=== PATIENT | male | born 1985 | race Two or more races ===

== ENCOUNTER 2024-09-27 12:18 | Emergency (ER) | payer MEDICAID, SELFPAY ==
--- NOTE | 2024-09-27 12:22 | ED_ITS ---
HPI - General Adult General Chief complaint: Neuro Symptoms/Deficit Stated complaint: l side facial nunbness Time Seen by Provider: 09/27/24 13:14 Source: patient and family (Significant other at bedside corroborating history) Mode of arrival: ambulatory Limitations: no limitations History of Present Illness ED Provider: Abby Owusu PA-C HPI narrative: 39-year-old male without significant medical history presents to the ED due to left-sided facial paralysis that began 1 day ago. Patient is steady he woke up yesterday 09/26 and took a shower and noticed that he was unable to keep water in his mouth as water was leaking out of the left side. As day progressed noticed he had progressing left-sided facial weakness. Stated he woke up this morning and was unable to close his left eye without digital manipulation. Denies chest pain, shortness of breath, headache, visual changes, nausea, vomiting, diarrhea, black/tarry stool Onset (ago): day(s) (1) Location: face (Left side) Radiation: non-radiation Related Data Previous Rx's ?Medication ?Instructions ?Recorded prednisone 20 mg tablet 60 mg (3 x 20 mg) PO DAILY # 6 tabs 09/27/24 valacyclovir 500 mg tablet 500 mg PO TID 7 days #21 ta bs 09/27/24 Allergies Allergy/AdvReac Type Severity Reaction Status Date / Time ibuprofen (From Motrin) Allergy Facial Verified 09/27/24 12:24 Swelling ketorolac (From Toradol) Allergy Facial Verified 09/27/24 12:24 Swelling Review of Systems 2 Review of Systems: CONST: Negative for fever, body aches and chills. HENT: Negative for neck pain/stiffness, headache, congestion, sore throat, swelling. L sided face paralysis, intermittent tingling EYES: Negative for discharge/pain or vision changes. L eye will not close without manipulation. RESP: Negative for cough/hemoptysis and shortness of breath. CV: Negative chest pain, difficulty breathing, palpitations. ABD: Negative pain, nausea, vomiting. : Negative increase frequency, dysuria, blood in urine or stool. MUSC: Negative for muscle aches, edema. SKIN: Negative rash, lesions/sores. NEURO: Negative headache, dizziness, weakness. Yes all other systems are reviewed and are negative PMFSH Past Medical History Attestation statement: The following information was validated with the patient. Source: old records reviewed, obtained from family (Significant other at bedside) and nursing notes reviewed Social History Social History Smoked in Last 30 Days: Yes Use of substances other than those prescribed or required for medical reasons: No Advance Directives: No Advance Directives Information Provided: Yes Do you have a plan to hurt others: No Plan Physical Exam ED Vital Signs: Vital Signs - 24 hr 09/27/24 12:23 Temperature 98.6 F Pulse Rate 79 Respiratory Rate 16 Blood Pressure 132/80 Pulse Oximetry 97 Oxygen Delivery Method Room Air BMI result Body Mass Index 25.8 GENERAL APPEARANCE: ?AxOx4, generally well-appearing, no acute distress. HEENT: ?NC, AT. MMM. EOMI, clear conjunctiva, oropharynx clear. L eye unable to close all the way without digital manipulation. L sided facial paralysis including eyebrow NECK: ?Supple without lymphadenopathy.? No stiffness or restricted ROM. HEART:? Normal rate and regular rhythm, normal S1/S1, no m/r/g LUNGS:? CTAB, moving air well. No crackles or wheezes are heard. ABDOMEN: ?Soft, nontender, nondistended with good bowel sounds heard. BACK: No CVAT, no obvious deformity. EXTREMITIES: ?Without cyanosis, clubbing or edema. NEUROLOGICAL: ?Grossly nonfocal. Alert and oriented, moving all 4 extremities. Observed to ambulate with normal gait. Skin: ?Warm and dry without any rash. NIH Stroke Scale Internal: Initial- Upon Arrival Time: 13:33 Level of Consciousness: Alert Level of Consciousness Questions: Answers both questions correctly Level of Consciousness Commands: Performs both tasks correctly Best Gaze: Normal Visual: No visual loss Facial Palsy: Partial paralysis Motor Arm (Right): No drift Motor Arm (Left): No drift Motor Leg (Right): No drift Motor Leg (Left): No drift Limb Ataxia: Absent Sensory: Normal Best Language: No aphasia Dysarthia: Normal Extinction and Inattention: No abnormality Score: 2 Course Course Course Narrative: RME performed by Jaida Benson PA-C. Patient is a 39 year old assigned male at presenting to the emergency department with left sided facial numbness / tingling. Patient states yesterday he woke up with his left eyelid unable to blink and numbness / tingling on his left side. Detailed physical exam and review of systems are deferred to the office support clerk. Labs ordered. Patient placed back in the waiting room pending room availability and results. Medications Administered Discontinued Medications Generic Name Dose Route Start Last Admin Trade Name Jose PRN Reason Stop Dose Admin Prednisone 60 mg 09/27/24 13:47 09/27/24 13:53 Prednisone 20 Mg Tablet PO 09/27/24 13:48 60 mg ONCE ONE Administration Medical Decision Making Medical Decision Making MDM Narrative: 39-year-old male without significant medical history presents to the ED due to left-sided facial paralysis that began 1 day ago. Patient is steady he woke up yesterday 09/26 and took a shower and noticed that he was unable to keep water in his mouth as water was leaking out of the left side. As day progressed noticed he had progressing left-sided facial weakness. Stated he woke up this morning and was unable to close his left eye without digital manipulation. Vital signs stable, no acute distress, nontoxic appearing. Patient observed ambulating to hospital room without ataxic gait. On physical exam there is mild left-sided facial paralysis including eyebrow, no complete loss of left-sided nasolabial fold. Left eye will not close without digital manipulation, no excessive tearing. No focal neurological deficits, NIH scale of 2 due to facial paralysis which includes eyebrow. No speech slurring.-less likely stroke No ascending limb weakness, paresthesias patellar reflexes 2+ bilaterally, no recent URI or illness- less likely Guillain-Finley. Patient denies recent tick exposure, has not removed tick- less likely lyme disease Face and scalp without vesicular rash- less likely [place] Duffy syndrome Will obtain lab work including tick panel and give dose of 60 mg prednisone while in the department. Patient will be discharged and prescribed a 7 day course of prednisone taper, and acyclovir to cover viral etiology. Course 14:31- labs WNL, awaiting tick panel will call patient with results. Patient will be discharged home with course of prednisone taper and valcyclovir. Patient is in understanding, urged patient to follow up with PCP to ensure improvement. Counseled on strict return precautions. Differential Diagnosis Differential Diagnoses: The differential diagnosis associated with the presentation includes Stroke, Arango's palsy, [place] Duffy syndrome, shingles, Lyme disease, Admission/Observation Consideration of admission/observation: Escalation of care including admission/observation considered Lab Data MDM Lab Attestation statement: I reviewed the patient's lab results. 09/27/24 14:02 09/27/24 14:02 Labs: Lab Results 09/27/24 Range/Units 14:02 WBC 8.3 (4.8-10.8) X10*3/uL RBC 5.07 (4.60-5.80) X10*6/uL Hgb 15.6 (14.0-18.0) g/dl Hct 43.7 (42.0-52.0) % MCV 86.2 (80.0-98.0) fL MCH 30.8 (27.0-33.0) pg MCHC 35.7 (31.0-36.0) g/dl RDW 13.3 (11.0-16.0) % Plt Count 279 (160-400) X10*3/uL MPV 11.1 (9.4-12.4) fL Immature Gran % (Auto) 0.2 (0.0-0.4) % Neut % (Auto) 61.1 (45-73) % Lymph % (Auto) 31.1 (20-40) % [place] % (Auto) 5.9 (2-11) % Eos % (Auto) 1.2 (0-4) % Baso % (Auto) 0.5 (0-2) % Lymph # (Auto) 2.6 (1.2-4.9) X10*3/uL [place] # (Auto) 0.5 (0.1-1.2) X10*3/uL Eos # (Auto) 0.1 (0.0-0.4) X10*3/uL Baso # (Auto) 0.0 (0.0-0.2) X10*3/uL Abs Immat Gran (auto) 0.02 (0.00-0.03) X10*3/uL Absolute Neuts (auto) 5.1 (2.0-8.3) x10*3/uL Absolute Nucleated RBC 0.000 (0.0-0.012) X10*3/uL Nucleated RBC % (auto) 0.0 (0.0-0.2) /100WBC ESR 12 (0-15) MM/HR Sodium 140 (135-145) mmol/L Potassium 3.8 (3.3-5.1) mmol/L Chloride 106 (96-108) mmol/L Carbon Dioxide 24 (22-29) mmol/L Anion Gap 14 (12-20) BUN 13 (9-16) mg/dL Creatinine 0.76 (0.5-1.4) mg/dL Estim Creat Clear Calc 136.2 Estimated GFR > 60 Random Glucose 112 (60-115) mg/dL Calcium 9.6 (8.4-10.2) mg/dL Magnesium 1.9 (1.6-2.6) mg/dL Total Bilirubin 0.8 (0.0-1.0) mg/dL AST 18 (5-37) U/L ALT 25 (0-40) U/L Alkaline Phosphatase 101 (39-117) U/L C-Reactive Protein 0.59 H (< or = 0.50) mg/dL Total Protein 8.1 H (6.5-8.0) g/dL Albumin 4.8 (3.5-5.0) g/dL External Record Review External record reviewed: Inpatient record, Office record and Outpatient record Discharge Plan Discharge Clinical Impression: Arango's palsy Patient Disposition: Home, Self-Care Instructions: Arango Palsy (ED) Additional Instructions: You were evaluated in the emergency department today due to left-sided facial paralysis. You did not have any neurological symptoms outside of left-sided mild facial paralysis which included the eyebrow. When you have facial paralysis that includes the eyebrow, this is indicative of Arango's palsy and not a neurological stroke. Your lab work was normal. We are still awaiting results of the new [place] tick panel, you will be called with these results once they come in. You will be prescribed a 6 day course of prednisone which is a steroid that will treat inflammation. You received your 1st 60 mg prednisone dose in the emergency department. You were also being prescribed a course of an antiviral medication called valcyclovir. Please complete these medications as indicated on the directions, do not skip a dose. Please follow up with your PCP to ensure improvement. Please return to the emergency department if you experience worsening of your facial paralysis, excessive tearing of the left eye, slurred speech or difficulty speaking, weakness of your extremities, changes in your ability to walk, fever over 100.4?, or any new/worsening/concerning symptoms. Prescriptions: New prednisone 20 mg tablet 60 mg PO DAILY Qty: 6 0RF valacyclovir 500 mg tablet 500 mg PO TID 7 Days Qty: 21 0RF Print Language: Vietnamese
[2024-09-27 12:23] VITALS: BP 132/80; PULSE 79; RESP 16; TEMP 37; O2SAT 97; BMI 25.8
[2024-09-27] MEDS: predniSONE 20 MG TABLET 60 MG PO (13:53)
[2024-09-27 14:07] LABS: MANUAL DIFF FLAG NO
[2024-09-27 14:08] LABS: Basophils Percent Auto 0.5 % (0-2); Eosinophils Absolute Auto 0.1 X10*3/uL (0.0-0.4); Eosinophils Percent Auto 1.2 % (0-4); Hematocrit 43.7 % (42.0-52.0); Hemoglobin 15.6 g/dl (14.0-18.0); Imm Gran Abs Auto 0.02 X10*3/uL (0.00-0.03); Imm Gran Pct Auto 0.2 % (0.0-0.4); Lymphocytes Absolute Auto 2.6 X10*3/uL (1.2-4.9); Lymphocytes Percent Auto 31.1 % (20-40); Mean Corpuscular HGB Conc 35.7 g/dl (31.0-36.0); Mean Corpuscular Hemoglobin 30.8 pg (27.0-33.0); Mean Corpuscular Volume 86.2 fL (80.0-98.0); Mean Platelet Volume 11.1 fL (9.4-12.4); Monocytes Absolute Auto 0.5 X10*3/uL (0.1-1.2); Monocytes Percent Auto 5.9 % (2-11); Neutrophils Absolute Auto 5.1 x10*3/uL (2.0-8.3); Neutrophils Percent Auto 61.1 % (45-73); Platelet Count 279 X10*3/uL (160-400); Red Blood Count 5.07 X10*6/uL (4.60-5.80); Red Cell Distribution Width 13.3 % (11.0-16.0); White Blood Count 8.3 X10*3/uL (4.8-10.8)
[2024-09-27 14:23] LABS: Alanine Aminotransferase 25 U/L (0-40); Albumin Level 4.8 g/dL (3.5-5.0); Alkaline Phosphatase 101 U/L (39-117); Anion Gap 14 (12-20); Aspartate Amino Transferase 18 U/L (5-37); Bilirubin Total 0.8 mg/dL (0.0-1.0); Blood Urea Nitrogen 13 mg/dL (9-16); C Reactive Protein 0.59 mg/dL (< or = 0.50); Calcium 9.6 mg/dL (8.4-10.2); Carbon Dioxide 24 mmol/L (22-29); Chloride 106 mmol/L (96-108); Creatinine Clr Calc Pharmacy 136.2; Estimated Glomerular Filt Rate > 60; Glucose Random 112 mg/dL (60-115); Magnesium 1.9 mg/dL (1.6-2.6); Potassium 3.8 mmol/L (3.3-5.1); Sodium 140 mmol/L (135-145); Total Protein 8.1 g/dL (6.5-8.0)
[2024-09-27 14:57] LABS: Erythrocyte Sedimentation Rate 12 MM/HR (0-15)
[2024-09-27 15:22] VITALS: BP 141/71; PULSE 72; RESP 16; TEMP 37; O2SAT 97
[2024-09-28 18:13] LABS: Lyme Abs Screen <0.90 index
[2024-09-28 23:18] LABS: A. Phagocytphilium DNA,RT-PCR NOT DETECTED (NOT DETECTED); Babesia Microti DNA, RT-PCR NOT DETECTED (NOT DETECTED); Borrelia Miyamotoi,DNA RT-PCR NOT DETECTED (NOT DETECTED); E.Chaffeensis DNA RT-PCR NOT DETECTED (NOT DETECTED); Lyme(Borrelia ssp)DNA RT-PCR NOT DETECTED (NOT DETECTED)
== END 2024-09-27 15:23 | disposition home or self-care (01) ==
PROVIDERS: Physician Assistant Medical; Emergency Provider Emergency Medicine
DX: G51.0 Bell's palsy (principal); R29.702 NIHSS score 2
CPT/HCPCS: 36415; 80053; 83735; 85025; 85652; 86140; 86617; 86618; 87468; 87469; 87478; 87484; 87798; 99283; 99284